=== PATIENT | female | born 1975 | race Caucasian/White ===

== ENCOUNTER 2018-05-17 12:21 | Emergency (ER) | payer MEDICARE ==
[~2018-05-17] VITALS: Ht 167.6 cm; Wt 163.6 kg
[2018-05-17 12:44] VITALS: BP 158/90; Ht 167.6 cm; Wt 163.6 kg
[2018-05-17 13:49] LABS: ALBUMIN 3.2 g/dL (3.4-5.0); ALKALINE PHOSPHATASE 55 U/L (46-116); ALT (SGPT) 23 U/L (10-68); BILIRUBIN - TOTAL 0.17 mg/dL (0.2-1.3); CALC OSMOLALITY 276 mosm/kg (275-300); CALCIUM 9.1 mg/dL (8.5-10.1); CHLORIDE - SERUM 102 mmol/L (98-107); CREATININE - SERUM 0.8 mg/dL (0.6-1.3); GLUCOSE 127 mg/dL (74-106); POTASSIUM - SERUM 4.1 mmol/L (3.5-5.1); PROTEIN - SERUM 6.9 g/dL (6.4-8.2); SODIUM 138 mmol/L (136-145); UREA NITROGEN 11 mg/dL (7-18); eGFR NON AFRICAN AMERICAN 84 mL/min (90-120)
[2018-05-17 14:20] LABS: BASOPHILS 0.2 % (0-2); EOSINOPHILS 1.3 % (0-7); HEMOGLOBIN 13.5 g/dL (12-16); IMMATURE GRANULOCYTES 0.2 % (0-5); LYMPHOCYTES 18.8 % (15-50); MCH 29.2 pg (26.0-34.0); MCHC 33.8 g/dL (31.0-37.0); MCV 86.6 fL (80.0-100.0); MEAN PLATELET VOLUME 10.3 fL (7.4-10.4); MONOCYTES 6.8 % (2-11); NEUTROPHILS 72.7 % (40-80); PLATELET COUNT 298 10x3/uL (130-400); RBC 4.62 10x6/uL (4.00-5.40); RDW 13.6 % (11.5-14.5); WBC 12.3 10x3/uL (4.8-10.8)
[2018-05-17 15:03] LABS: THYROID STIMULATING HORMONE 2.27 uIU/mL (0.36-3.74)
== END 2018-05-17 18:50 | disposition home or self-care (01) ==
LOC: D.ER 12:21
PROVIDERS: Emergency Medicine
DX: R45.851 Suicidal ideations (principal); F32.9 Major depressive disorder, single episode, unspecified; F17.200 Nicotine dependence, unspecified, uncomplicated

== ENCOUNTER 2018-09-04 14:47 | Emergency (ER) | payer MEDICARE ==
[2018-09-04 15:22] VITALS: BP 96/50; Ht 167.6 cm
[2018-09-04 15:52] LABS: BASOPHILS 0.2 % (0-2); EOSINOPHILS 1.3 % (0-7); HEMATOCRIT 38.7 % (36.0-48.0); IMMATURE GRANULOCYTES 0.2 % (0-5); LYMPHOCYTES 25.9 % (15-50); MCH 28.9 pg (26.0-34.0); MCHC 33.6 g/dL (31.0-37.0); MEAN PLATELET VOLUME 10.7 fL (7.4-10.4); MONOCYTES 7.6 % (2-11); NEUTROPHILS 64.8 % (40-80); RDW 13.8 % (11.5-14.5); WBC 10.3 10x3/uL (4.8-10.8)
[2018-09-04 15:53] LABS: PLATELET COUNT 238 10x3/uL (130-400)
[2018-09-04 16:23] LABS: ALBUMIN 2.9 g/dL (3.4-5.0); ALKALINE PHOSPHATASE 52 U/L (46-116); ALT (SGPT) 21 U/L (10-68); BILIRUBIN - TOTAL 0.21 mg/dL (0.2-1.3); CALC OSMOLALITY 276 mosm/kg (275-300); CALCIUM 7.9 mg/dL (8.5-10.1); CARBON DIOXIDE 26.1 mmol/L (21.0-32.0); CHLORIDE - SERUM 107 mmol/L (98-107); CREATININE - SERUM 0.8 mg/dL (0.6-1.3); GLUCOSE 107 mg/dL (74-106); POTASSIUM - SERUM 3.4 mmol/L (3.5-5.1); PROTEIN - SERUM 6.2 g/dL (6.4-8.2); SODIUM 140 mmol/L (136-145); UREA NITROGEN 8 mg/dL (7-18); eGFR NON AFRICAN AMERICAN 84 mL/min (90-120)
[2018-09-04] MEDS ORDERED: LEXAPRO20 MG PO (16:53)
== END 2018-09-04 18:18 | disposition home or self-care (01) ==
LOC: D.ER 14:47
PROVIDERS: Emergency Medicine
DX: F41.9 Anxiety disorder, unspecified (principal); F32.9 Major depressive disorder, single episode, unspecified

== ENCOUNTER 2018-09-05 19:39 | Emergency (ER) | payer MEDICARE ==
[~2018-09-05] VITALS: Ht 167.6 cm; Wt 159.1 kg
[~2018-09-05 19:39] MED LIST: LEXAPRO20 MG PO
[2018-09-05 20:10] VITALS: Ht 167.6 cm; Wt 159.1 kg
[2018-09-05 21:16] LABS: APPEARANCE CLEAR (CLEAR); BILIRUBIN NEGATIVE (NEGATIVE); COLOR YELLOW (YELLOW); GLUCOSE NEGATIVE (NEGATIVE); HCG URINE NEGATIVE (NEGATIVE); KETONE SMALL mg/dL (NEGATIVE); NITRITE NEGATIVE (NEGATIVE); PROTEIN TRACE mg/dL (NEGATIVE); SPECIFIC GRAVITY 1.025 (1.005-1.020); UROBILINOGEN NORMAL (NORMAL)
[2018-09-05 21:19] LABS: BACTERIA MODERATE /hpf (NONE SEEN); CALCIUM OXALATE CRYSTALS 0-5 /hpf (NONE SEEN); EPITHELIAL CELLS 0-5 /hpf (0-5); MUCUS <1+ /lpf (NONE SEEN); RED CELLS - URINE 0-5 /hpf (0-5); WHITE CELLS - URINE 0-5 /hpf (0-5)
[2018-09-05 21:25] LABS: UDS - AMPHET NEGATIVE QUAL (NEGATIVE); UDS - BARB NEGATIVE QUAL (NEGATIVE); UDS - BENZO NEGATIVE QUAL (NEGATIVE); UDS - COCAINE NEGATIVE QUAL (NEGATIVE); UDS - OPIATE NEGATIVE QUAL (NEGATIVE); UDS - PCP NEGATIVE QUAL (NEGATIVE); UDS - THC NEGATIVE QUAL (NEGATIVE)
[2018-09-05 21:50] LABS: BASOPHILS 0.2 % (0-2); EOSINOPHILS 1.4 % (0-7); HEMATOCRIT 39.1 % (36.0-48.0); IMMATURE GRANULOCYTES 0.2 % (0-5); LYMPHOCYTES 25.2 % (15-50); MCH 28.3 pg (26.0-34.0); MCHC 33.2 g/dL (31.0-37.0); MCV 85.2 fL (80.0-100.0); MEAN PLATELET VOLUME 10.8 fL (7.4-10.4); PLATELET COUNT 227 10x3/uL (130-400); RBC 4.59 10x6/uL (4.00-5.40); RDW 13.7 % (11.5-14.5); WBC 11.1 10x3/uL (4.8-10.8)
[2018-09-05 22:08] LABS: ALBUMIN 2.8 g/dL (3.4-5.0); ALKALINE PHOSPHATASE 51 U/L (46-116); ALT (SGPT) 20 U/L (10-68); BILIRUBIN - TOTAL 0.15 mg/dL (0.2-1.3); CALC OSMOLALITY 280 mosm/kg (275-300); CALCIUM 8.2 mg/dL (8.5-10.1); CARBON DIOXIDE 27.1 mmol/L (21.0-32.0); CHLORIDE - SERUM 107 mmol/L (98-107); CREATININE - SERUM 0.8 mg/dL (0.6-1.3); GLUCOSE 117 mg/dL (74-106); POTASSIUM - SERUM 3.5 mmol/L (3.5-5.1); SODIUM 142 mmol/L (136-145); eGFR NON AFRICAN AMERICAN 84 mL/min (90-120)
[2018-09-05 22:10] LABS: MAGNESIUM - SERUM 1.9 mg/dL (1.8-2.4)
[2018-09-05 22:12] LABS: UREA NITROGEN 5 mg/dL (7-18)
[2018-09-06 02:27] VITALS: BP 132/86
== END 2018-09-06 02:54 ==
LOC: D.ER 19:39
PROVIDERS: Family Medicine
DX: R45.851 Suicidal ideations (principal); F32.9 Major depressive disorder, single episode, unspecified